=== PATIENT | female | born 1935 | race Caucasian/White ===

== ENCOUNTER 2021-05-07 09:00 | Outpatient (RCR) | payer MEDICARE, SELFPAY ==
[2021-05-01 14:10] VITALS: BP 155/65; PULSE 73; RESP 16; TEMP 36.8
--- NOTE | 2021-05-01 16:25 | HP.PCM_ITS ---
History of Present Illness Date of Service: 05/01/21 Chief Complaint: Nonhealing ulcers to bilateral legs History of Wound: This is an 86-year-old white female who presents to the wound healing center today with complaints of nonhealing ulcers on her bilateral lower extremities. These have been present for at least the last month. She has a past medical history of CKD, hypertension, and questionable diabetes. The patient states that she has a longstanding history of bilateral lower extremity edema. She does not currently utilize any compression other than Tubigrip's. She states that over the last couple weeks her redness to her left lower extremity has gotten somewhat worse and that she has had moderate amounts of serous drainage from the open wounds on her left lower extremity. She has been utilizing [id number] bacitracin and covering with gauze. She denies any systemic signs of infection at this time. Past medical, family, and social history reviewed and not pertinent to the current visit and all other systems reviewed and negative with exception of those listed above. [facility] Medical History (Updated 05/01/21 @ 16:34 by Francisco Javier Castellon NP, [employer]) CKD (chronic kidney disease) HTN (hypertension) PVD (peripheral vascular disease) Venous ulcer of left leg Venous ulcer of right leg ROS ROS Narrative Negative x10 systems with exception of those listed above Vital Signs Vital Signs Vital Signs: 05/01/21 14:10 Temperature 98.2 F Temperature Source Temporal Pulse Rate 73 Respiratory Rate 16 Blood Pressure 155/65 H Blood Pressure Mean 95 Blood Pressure Source Monitor Blood Pressure Position Sitting Blood Pressure Location Left Arm Physical Exam Const alert, oriented x3, no apparent distress, healthy appearing and well nourished General Appearance: cooperative Exam Limitations: no limitations HEENT normocephalic Head and Scalp: normal to inspection Mouth: oral and palatal mucosa normal Eyes General Eye: normal appearance of both eyes Resp normal respiratory effort, normal air movement and no use of accessory muscles Effort and Inspection: able to speak in complete sentences Auscultation: clear to auscultation bilaterally Cardio regular rate, regular rhythm, S1 normal heart sound, S2 normal heart sound, no murmurs and peripheral pulses 2+ throughout Palpation: normal PMI Rate: regular rate Heart Sounds: S1 normal and S2 normal GI normal to inspection, nondistended, normoactive bowel sounds, soft to palpation, non-tender and non-distended Palpation: soft Extremity normal to inspection and full ROM Extremity Narrative: 2+ pitting edema to bilateral lower extremities with chronic venous changes present and hemosiderin staining. Rubor present to bilateral lower extremities, slight warmth noted to the left lower extremity. Multiple clustered ulcers present with adherent slough, no purulent drainage, no streaking noted at this time. Dorsal pedis pulses 2+ General Extremity: normal exam except as noted Neuro oriented x3 and moves all extremities Sensorium / Orientation: awake, alert, oriented to person, oriented to place and oriented to time Psych mental status grossly normal, thought process normal and denies hallucinations Appearance: grossly normal Attitude: calm Activity / Motor Behavior: appropriate eye contact Speech: normal speech Thought Process: normal thought process Thought Content: normal thought content Attention / Concentration: attention grossly intact Insight: insight good Judgement: judgement good Debridement Note Debridement Note Wound debrided: Venous leg ulcer bilateral lower extremities Type of Debridement: Excisional debridement Anesthesia Used: 5% Lidocaine Gel Depth: Down to and including healthy tissue and in the subcutaneous layer Percentage of wound debrided: 100 Instrument Used: 5mm curette Tissue Removed: Slough and devitalized tissue Severity: Fat Layer Exposed Amount of bleeding with debridement: Mild Bleeding Controlled with: Pressure Patient tolerated procedure: Patient tolerated procedure well Post-Debridement Measurements and Additional Note: Post-Debridement Measurements/Treatment - Nurse 1 - General Ulcer Assessment Start: 05/01/21 14:10 Freq: Status: Active Protocol: JESUS Activity Type Activity Date Activity User E-Sign Co-Sign Detail Recorded Client Recorded Date Recorded By Document 05/01/21 14:10 ML [id number] 05/01/21 14:24 ML Document 05/01/21 14:32 DL [id number] 05/01/21 14:35 DL 05/01/21 05/01/21 14:10 14:32 - Today's Visit Information Type of service Initial Visit Arrival Mode Ambulatory Transfer Assistance None Patient Identification Verified (Name & Yes ) Patient Requires Transmission-Based No Precautions Safety Precautions NA Vital Signs Temperature (97.8 F-99.1 F) 98.2 F Temperature Source Temporal Pulse Rate (60-100) 73 Pulse Location Monitor Respiratory Rate (12-18) 16 Respiratory rate source Observation Blood Pressure (90/60-120/80) 155/65 H Blood Pressure Mean 95 Source Monitor Position Sitting Blood Pressure Location Left Arm History Since Last Visit- (Skip if this is Patient's initial visit) Have you changed medications since your No last visit? Any new allergies or adverse reactions No Had a fall/change in ADL's that may No increase risk of falls Signs or symptoms of abuse and/or No neglect since last visit Have you been in the hospital since your No last visit? Has dressing in place as prescribed No Has compression in place as prescribed N/A Has offloadiing in place as prescribed N/A Experienced any changes in pain level or No management Left Footwear Regular Shoe Right Footwear Regular Shoe Pain Scale: 0-10 Numeric Is Patient Pain Free? Yes Lower Extremity Assessment/ Foot Assessment/ Toe Nail Assessment Left -Posterior Tibial Palpable No -Posterior Tibial Doppler Multiphasic -Dorsalis Pedis Palpable No -Dorsalis Pedis Doppler Multiphasic -Extremity Color Hemosiderin -Hair Growth on Legs No -Hair Growth on Toes No -Temperature of Extremity Warm -Capillary Refill Greater than 3 Seconds -Dependent Rubor No -Blanched when Elevated No -Lipodermatosclerosis No -Other Deformity No -Prior Foot Ulcer No -Charcot Joint No -Prior Amputation No -Thick Yes -Discolored Yes -Deformed Yes -Improper Length & Hygeine Yes Right -Posterior Tibial Palpable No -Dorsalis Pedis Palpable No -Dorsalis Pedis Doppler Multiphasic -Extremity Color Hemosiderin -Hair Growth on Legs No -Hair Growth on Toes No -Temperature of Extremity Warm -Capillary Refill Greater than 3 Seconds -Dependent Rubor No -Blanched when Elevated No -Lipodermatosclerosis No -Other Deformity No -Prior Foot Ulcer No -Charcot Joint No -Prior Amputation No -Thick Yes -Discolored Yes -Deformed Yes -Improper Length & Hygeine Yes WC - Nurse 1 - General Ulcer Measurement Start: 05/01/21 14:10 Freq: Status: Active Protocol: Activity Type Activity Date Activity User E-Sign Co-Sign Detail Recorded Client Recorded Date Recorded By Document 05/01/21 14:10 ML [id number] 05/01/21 14:24 ML 05/01/21 14:10 Wound Center Nurse 1 #3 right quezada cluster -Current Size (cm) - Length 2.2 -Current Size (cm) - Width 4.4 -Current Size (cm) - Depth 0.1 -Total Square Cm 9.68 -Exudate Amt Small -Exudate Type Serosanguineous -Wound Margin Distinct, Outline Attached -Granulation Amt Medium (34-66%) -Granulation Quality Red -Slough/Fibrin Yes -Necrosis Amt Medium (34-66%) -Necrotic Tissue Type Adherent Slough -Texture (Meron-wound Skin Appearance) Assessed -Moisture (Meron-wound Skin Appearance) Assessed -Color (Meron-wound Skin Appearance) Assessed -Temperature (Meron-wound Skin No Abnormality Appearance) (Pt Warm) -Tenderness on Palpation (Meron-wound No Skin Appearance) -Ulcer Cleansing Soap and Water -Foul Odor after Cleansing No -Anesthetic Used 4% Lidocaine Solution #2 left medial lower leg cluster -Current Size (cm) - Length 0.9 -Current Size (cm) - Width 2.1 -Current Size (cm) - Depth 0.1 -Total Square Cm 1.89 -Exudate Amt Medium -Exudate Type Serosanguineous -Wound Margin Distinct, Outline Attached -Granulation Amt Medium (34-66%) -Granulation Quality Red -Slough/Fibrin Yes -Necrosis Amt Medium (34-66%) -Necrotic Tissue Type Adherent Slough -Texture (Meron-wound Skin Appearance) Assessed -Moisture (Meron-wound Skin Appearance) Assessed -Color (Meron-wound Skin Appearance) Assessed -Temperature (Meron-wound Skin Hot Appearance) -Tenderness on Palpation (Meron-wound No Skin Appearance) -Ulcer Cleansing Soap and Water -Foul Odor after Cleansing No -Anesthetic Used 4% Lidocaine Solution #1 left lateral lower leg -Current Size (cm) - Length 9 -Current Size (cm) - Width 4.3 -Current Size (cm) - Depth 0.1 -Total Square Cm 38.7 -Exudate Amt Medium -Exudate Type Serous -Wound Margin Distinct, Outline Attached -Granulation Amt Medium (34-66%) -Slough/Fibrin Yes -Necrosis Amt Medium (34-66%) -Necrotic Tissue Type Adherent Slough -Texture (Meron-wound Skin Appearance) Assessed -Moisture (Meron-wound Skin Appearance) Assessed -Color (Meron-wound Skin Appearance) Erythema -Temperature (Meron-wound Skin No Abnormality Appearance) (Pt Warm) -Tenderness on Palpation (Meron-wound No Skin Appearance) -Ulcer Cleansing Soap and Water -Foul Odor after Cleansing No -Anesthetic Used 4% Lidocaine Solution Right Calf (cm) 34.2 Right Ankle (cm) 28.5 Left Calf (cm) 42.5 Left Ankle (cm) 28 - Nurse 2 - General Ulcer CM Notes Start: 05/01/21 14:10 Freq: Status: Active Protocol: Activity Type Activity Date Activity User E-Sign Co-Sign Detail Recorded Client Recorded Date Recorded By Document 05/01/21 14:50 MW [id number] 05/01/21 15:01 MW 05/01/21 14:50 Wound Center Nurse 2 #3 right quezada cluster -Time 14:51 -Correct Patient Yes -Correct Side, Site, Position Yes -Correct Procedure Yes -Procedure Performed Yes -Type of Procedure Debridement -Clinical Debridement Subcutaneous -Tissue Removed Subcutaneous -Post Debridement (cm) - Length 3.0 -Post Debridement (cm) - Width 5.5 -Post Debridement (cm) - Depth 0.1 -Total Square (Post) (cm) 16.50 -Area of Debridement (cm) - Length 3.0 -Area of Debridement (cm) - Width 5.5 -Total Square (Area) (cm) 16.50 -Tunneling No -Undermining/Tunneling No -Circular Undermining No -Wound/Ulcer Outcome Not Healed -Ulcer Cleansing Rinsed/ Irrigated with Saline -Foul Odor after Cleansing No -Bioengineered Tissue No -Bleeding Controlled with Pressure -Offloading No -Treatment Response Procedure Tolerated Well -Debridement - Subq, 1st 20sq cm Yes -Debridement, SubQ, ea addt'l 20sq cm 3 or part thereof #2 left medial lower leg cluster -Time 14:52 -Correct Patient Yes -Correct Side, Site, Position Yes -Correct Procedure Yes -Procedure Performed Yes -Type of Procedure Debridement -Clinical Debridement Subcutaneous -Tissue Removed Subcutaneous -Post Debridement (cm) - Length 1.0 -Post Debridement (cm) - Width 0.5 -Post Debridement (cm) - Depth 0.1 -Total Square (Post) (cm) 0.50 -Area of Debridement (cm) - Length 1.0 -Area of Debridement (cm) - Width 0.5 -Total Square (Area) (cm) 0.50 -Tunneling No -Undermining/Tunneling No -Circular Undermining No -Wound/Ulcer Outcome Not Healed -Ulcer Cleansing Rinsed/ Irrigated with Saline -Foul Odor after Cleansing No -Bioengineered Tissue No -Bleeding Controlled with Pressure -Offloading No -Treatment Response Procedure Tolerated Well -Debridement - Subq, 1st 20sq cm No #1 left lateral lower leg -Time 14:53 -Correct Patient Yes -Correct Side, Site, Position Yes -Correct Procedure Yes -Procedure Performed Yes -Type of Procedure Debridement -Clinical Debridement Subcutaneous -Tissue Removed Subcutaneous -Post Debridement (cm) - Length 11.0 -Post Debridement (cm) - Width 4.5 -Post Debridement (cm) - Depth 0.1 -Total Square (Post) (cm) 49.50 -Area of Debridement (cm) - Length 11.0 -Area of Debridement (cm) - Width 4.5 -Total Square (Area) (cm) 49.50 -Tunneling No -Undermining/Tunneling No -Circular Undermining No -Wound/Ulcer Outcome Not Healed -Ulcer Cleansing Rinsed/ Irrigated with Saline -Foul Odor after Cleansing No -Bioengineered Tissue No -Bleeding Controlled with Pressure -Offloading No -Treatment Response Procedure Tolerated Well -Debridement - Subq, 1st 20sq cm No Pain Scale: 0-10 Numeric Is Patient Pain Free? Yes WC - Nurse 3 - General Ulcer D/C NN Start: 05/01/21 14:10 Freq: Status: Active Protocol: Activity Type Activity Date Activity User E-Sign Co-Sign Detail Recorded Client Recorded Date Recorded By Document 05/01/21 15:09 BERNIE [id number] 05/01/21 15:12 BERNIE 05/01/21 15:09 Wound Care Nurse 3 #3 right quezada cluster -Ulcer Cleansing Rinsed/ Irrigated with Saline -Foul Odor after Cleansing No -Negative Pressure Wound Therapy N/A -Primary Dressing Applied Silvercel -Primary Dressing Covered/Secured with Dry Gauze & Roll Gauze, Secured with Tape -Silvercel 2 #2 left medial lower leg cluster -Ulcer Cleansing Rinsed/ Irrigated with Saline -Foul Odor after Cleansing No -Negative Pressure Wound Therapy N/A -Primary Dressing Applied NonAdherent Contact Layer, Silvercel -Primary Dressing Covered/Secured with Dry Gauze & Roll Gauze, Secured with Tape -Silvercel 0 #1 left lateral lower leg -Ulcer Cleansing Rinsed/ Irrigated with Saline -Foul Odor after Cleansing No -Negative Pressure Wound Therapy N/A -Primary Dressing Applied Silvercel -Primary Dressing Covered/Secured with Dry Gauze & Roll Gauze, Secured with Tape -Silvercel 0 Right -Lotion applied to leg before No compression wrap -Tubular Bandage Double Layer -Size of Tubigrip Used Size F -Size F ($) 2 Left -Lotion applied to leg before No compression wrap -Tubular Bandage Double Layer -Size of Tubigrip Used Size F -Size F ($) 2 WC - Visit Discharge Discharge Condition Stable Ambulatory Status Ambulatory Transportation Private Auto Accompanied by Medication Reconcilliation completed & No provided to patient/care provider Clinical Summary of Care Provided Yes Charges/Coding Visit Charges Office Visits / Consults: 26315 OV L4 New Procedures Integumentary [id number]: [id number] Maria Luz subq tissue 20 sq cm/< Add On Codes: 87209 Maria Luz subq tissue add-on (x 3) Assessment/Plan Assessment/Plan (1) Venous ulcer of right leg: CODE(S): I83.019 - Varicose veins of right lower extremity with ulcer of unspecified site; L97.919 - Non-pressure chronic ulcer of unspecified part of right lower leg with unspecified severity (2) Venous ulcer of left leg: CODE(S): I83.029 - Varicose veins of left lower extremity with ulcer of unspecified site; L97.929 - Non-pressure chronic ulcer of unspecified part of left lower leg with unspecified severity (3) CKD (chronic kidney disease): CODE(S): N18.9 - Chronic kidney disease, unspecified (4) HTN (hypertension): CODE(S): I10 - Essential (primary) hypertension (5) PVD (peripheral vascular disease): CODE(S): I73.9 - Peripheral vascular disease, unspecified PLAN: Debridement performed today in clinic as annotated above. Silver cell cover with Adaptic and gauze applied. At home wound-care instructions: Daily application of moistened silver cell cover with Adaptic and gauze Change dressing once daily or more frequently as needed due to contamination. Wash wounds daily with antibacterial soap and water, rinse and dry thoroughly before each dressing change. Compression: Double layer Tubigrip's Off-loading: The patient was instructed to avoid pressure and friction on the affected areas. Reposition every 2 hours at minimum. Avoid prolonged standing and/or dangling of legs. When seated, feet should be elevated at chest level. Frequent ambulation is encouraged. Diet: Patient encouraged to increase protein intake while taking caution to avoid high carbohydrate and/or sugar intake. Patient is a non-smoker Labs/cultures/imaging: Cultures ordered and collected today. Routine baseline lab work held. Vascular studies held. Follow-up: Return to clinic in 2 week for re-evaluation. Return sooner or report to the emergency room should symptoms worsen, or new symptoms arise. This note was generated with [employer] dictation software. It may contain incorrect words, spelling, and punctuation that were not noted in checking the note before signing. I have spent 45 minutes today reviewing labs, records, and history. Time includes coordinating care, interpretation of tests, and counseling the patient/family. This also includes time I spent with the patient for exam, treatment plan, and education as well as documenting clinical information in the electronic health record.
--- NOTE | 2021-05-06 11:49 | WC ---
Wound culture results reviewed per Francisco Javier Castellon NP. Antibiotic sent to [facility] pharmacy in [place] per Francisco Javier. Spoke to son Michael. Stated he was concerned the wound had increased redness and dressing is sticking so he took his mom to the urgent care in [place] this morning. Urgent care requested she just be seen sooner at the wound center since she is already being treated here. Scheduled patient to see Jayla Patiño NP tomorrow at 9am. Son voiced understanding and will also pharmacy picking tech ATB today.
[2021-05-07 08:50] VITALS: BP 149/68; PULSE 71; RESP 16; TEMP 35.7
--- NOTE | 2021-05-07 10:17 | PCM.WC.HP ---
History of Present Illness Date of Service: 05/07/21 Chief Complaint: Nonhealing ulcers to bilateral legs History of Wound: This is an 86-year-old white female who presents to the wound healing center today with complaints of nonhealing ulcers on her bilateral lower extremities. These have been present for at least the last month. She has a past medical history of CKD, hypertension, and questionable diabetes. The patient states that she has a longstanding history of bilateral lower extremity edema. She does not currently utilize any compression other than Tubigrip's. She states that over the last couple weeks her redness to her left lower extremity has gotten somewhat worse and that she has had moderate amounts of serous drainage from the open wounds on her left lower extremity. She has been utilizing [id number] bacitracin and covering with gauze. She denies any systemic signs of infection at this time. Past medical, family, and social history reviewed and not pertinent to the current visit and all other systems reviewed and negative with exception of those listed above. FOR[facility]LY [facility] Medical History CKD (chronic kidney disease) HTN (hypertension) PVD (peripheral vascular disease) Venous ulcer of left leg Venous ulcer of right leg Home Medications ciprofloxacin HCl 250 mg tablet 250 mg PO BID #14 tab 05/06/21 [Rx Last Taken Unknown] ROS Integumentary Integumentary: Reports non-healing lesions Vital Signs Vital Signs Vital Signs: 05/07/21 08:50 Temperature 96.3 F L Temperature Source Temporal Pulse Rate 71 Respiratory Rate 16 Blood Pressure 149/68 H Blood Pressure Mean 95 Blood Pressure Source Monitor Blood Pressure Position Sitting Blood Pressure Location Left Arm Physical Exam Const oriented x3 General Appearance: cooperative Exam Limitations: no limitations HEENT normocephalic Head and Scalp: normal to inspection Face and Sinus: normal facial exam Nose: external nose normal General Ear: hearing grossly impaired External Ear: external ears normal Mouth: oral and palatal mucosa normal Eyes PERRL General Eye: normal appearance of both eyes Neck full ROM General: normal visual inspection Resp normal respiratory effort Effort and Inspection: able to speak in complete sentences Auscultation: clear to auscultation bilaterally Cardio regular rate and regular rhythm Palpation: normal PMI Rate: regular rate Rhythm: regular rhythm GI Auscultation: normoactive bowel sounds Palpation: soft and no hepatosplenomegaly external exam normal Back/Spine Cervical Spine: cervical ROM normal Thoracic Spine / Upper Back: normal to inspection Lumbar Spine / Lower Back: normal to inspection Extremity normal to inspection General Extremity: normal exam except as noted and edema left Skin no rashes or lesions noted General Skin Exam: other scabbed lesions bilat lower legs Neuro oriented x3 Psych Appearance: grossly normal Speech: normal speech Thought Content: normal thought content Judgement: judgement good Debridement Note Debridement Note Wound debrided: bilat lower legs No debridement was completed: No debridement was completed today Post-Debridement Measurements and Additional Note: Post-Debridement Measurements/Treatment - Nurse 1 - General Ulcer Assessment Start: 05/01/21 14:10 Freq: Status: Active Protocol: JESUS Activity Type Activity Date Activity User E-Sign Co-Sign Detail Recorded Client Recorded Date Recorded By Document 05/01/21 14:10 ML [id number] 05/01/21 14:24 ML Document 05/01/21 14:32 DL [id number] 05/01/21 14:35 DL Document 05/07/21 08:50 ML [id number] 05/07/21 09:00 ML 05/01/21 05/01/21 05/07/21 14:10 14:32 08:50 - Today's Visit Information Type of service Initial Visit Follow-up Visit (Physician/NUTRITION SERVICES MANAGER ) Arrival Mode Ambulatory Ambulatory Transfer Assistance None None Patient Identification Verified (Name & Yes Yes ) Patient Requires Transmission-Based No No Precautions Safety Precautions NA NA Vital Signs Temperature (97.8 F-99.1 F) 98.2 F 96.3 F L Temperature Source Temporal Temporal Pulse Rate (60-100) 73 71 Pulse Location Monitor Monitor Respiratory Rate (12-18) 16 16 Respiratory rate source Observation Observation Blood Pressure (90/60-120/80) 155/65 H 149/68 H Blood Pressure Mean 95 95 Source Monitor Monitor Position Sitting Sitting Blood Pressure Location Left Arm Left Arm History Since Last Visit- (Skip if this is Patient's initial visit) Have you changed medications since your No No last visit? Any new allergies or adverse reactions No No Had a fall/change in ADL's that may No No increase risk of falls Signs or symptoms of abuse and/or No No neglect since last visit Have you been in the hospital since your No No last visit? Has dressing in place as prescribed No Yes Has compression in place as prescribed N/A N/A Has offloadiing in place as prescribed N/A N/A Experienced any changes in pain level or No No management Left Footwear Regular Shoe Regular Shoe Right Footwear Regular Shoe Regular Shoe Pain Scale: 0-10 Numeric Is Patient Pain Free? Yes Yes Lower Extremity Assessment/ Foot Assessment/ Toe Nail Assessment Left -Posterior Tibial Palpable No -Posterior Tibial Doppler Multiphasic -Dorsalis Pedis Palpable No -Dorsalis Pedis Doppler Multiphasic -Extremity Color Hemosiderin -Hair Growth on Legs No -Hair Growth on Toes No -Temperature of Extremity Warm -Capillary Refill Greater than 3 Seconds -Dependent Rubor No -Blanched when Elevated No -Lipodermatosclerosis No -Other Deformity No -Prior Foot Ulcer No -Charcot Joint No -Prior Amputation No -Thick Yes -Discolored Yes -Deformed Yes -Improper Length & Hygeine Yes Right -Posterior Tibial Palpable No -Dorsalis Pedis Palpable No -Dorsalis Pedis Doppler Multiphasic -Extremity Color Hemosiderin -Hair Growth on Legs No -Hair Growth on Toes No -Temperature of Extremity Warm -Capillary Refill Greater than 3 Seconds -Dependent Rubor No -Blanched when Elevated No -Lipodermatosclerosis No -Other Deformity No -Prior Foot Ulcer No -Charcot Joint No -Prior Amputation No -Thick Yes -Discolored Yes -Deformed Yes -Improper Length & Hygeine Yes WC - Nurse 1 - General Ulcer Measurement Start: 05/01/21 14:10 Freq: Status: Active Protocol: Activity Type Activity Date Activity User E-Sign Co-Sign Detail Recorded Client Recorded Date Recorded By Document 05/01/21 14:10 ML [id number] 05/01/21 14:24 ML Document 05/07/21 08:50 ML [id number] 05/07/21 09:00 ML 05/01/21 05/07/21 14:10 08:50 Wound Center Nurse 1 #3 right [place] cluster -Current Size (cm) - Length 2.2 2.8 -Current Size (cm) - Width 4.4 3.6 -Current Size (cm) - Depth 0.1 0.1 -Total Square Cm 9.68 10.08 -Exudate Amt Small Medium -Exudate Type Serosanguineous Serosanguineous -Wound Margin Distinct, Distinct, Outline Outline Attached Attached -Granulation Amt Medium (34-66%) Medium (34-66%) -Granulation Quality Red -Slough/Fibrin Yes Yes -Necrosis Amt Medium (34-66%) Medium (34-66%) -Necrotic Tissue Type Adherent Slough Adherent Slough -Texture (Meron-wound Skin Appearance) Assessed Assessed -Moisture (Meron-wound Skin Appearance) Assessed Assessed -Color (Meron-wound Skin Appearance) Assessed Assessed -Temperature (Meron-wound Skin No Abnormality No Abnormality Appearance) (Pt Warm) (Pt Warm) -Tenderness on Palpation (Meron-wound No No Skin Appearance) -Ulcer Cleansing Soap and Water Soap and Water -Foul Odor after Cleansing No No -Anesthetic Used 4% Lidocaine 4% Lidocaine Solution Solution #2 left medial lower leg cluster -Current Size (cm) - Length 0.9 1 -Current Size (cm) - Width 2.1 1.9 -Current Size (cm) - Depth 0.1 0.1 -Total Square Cm 1.89 1.9 -Exudate Amt Medium Medium -Exudate Type Serosanguineous Serosanguineous -Wound Margin Distinct, Distinct, Outline Outline Attached Attached -Granulation Amt Medium (34-66%) Medium (34-66%) -Granulation Quality Red -Slough/Fibrin Yes Yes -Necrosis Amt Medium (34-66%) Medium (34-66%) -Necrotic Tissue Type Adherent Slough Adherent Slough -Texture (Meron-wound Skin Appearance) Assessed Assessed -Moisture (Meron-wound Skin Appearance) Assessed Assessed -Color (Meron-wound Skin Appearance) Assessed Assessed -Temperature (Meron-wound Skin Hot No Abnormality Appearance) (Pt Warm) -Tenderness on Palpation (Meron-wound No Skin Appearance) -Ulcer Cleansing Soap and Water Soap and Water -Foul Odor after Cleansing No No -Anesthetic Used 4% Lidocaine 4% Lidocaine Solution Solution #1 left lateral lower leg -Current Size (cm) - Length 9 8.9 -Current Size (cm) - Width 4.3 6.3 -Current Size (cm) - Depth 0.1 0.1 -Total Square Cm 38.7 56.07 -Exudate Amt Medium Medium -Exudate Type Serous Serosanguineous -Wound Margin Distinct, Distinct, Outline Outline Attached Attached -Granulation Amt Medium (34-66%) Medium (34-66%) -Slough/Fibrin Yes Yes -Necrosis Amt Medium (34-66%) Medium (34-66%) -Necrotic Tissue Type Adherent Slough Adherent Slough -Texture (Meron-wound Skin Appearance) Assessed Assessed -Moisture (Meron-wound Skin Appearance) Assessed Assessed -Color (Meron-wound Skin Appearance) Erythema Assessed -Temperature (Meron-wound Skin No Abnormality No Abnormality Appearance) (Pt Warm) (Pt Warm) -Tenderness on Palpation (Meron-wound No No Skin Appearance) -Ulcer Cleansing Soap and Water Soap and Water -Foul Odor after Cleansing No Yes -Anesthetic Used 4% Lidocaine 4% Lidocaine Solution Solution Right Calf (cm) 34.2 35.7 Right Ankle (cm) 28.5 25.1 Left Calf (cm) 42.5 41.3 Left Ankle (cm) 28 26.8 WC - Nurse 2 - General Ulcer CM Notes Start: 05/01/21 14:10 Freq: Status: Active Protocol: Activity Type Activity Date Activity User E-Sign Co-Sign Detail Recorded Client Recorded Date Recorded By Document 05/01/21 14:50 MW [id number] 05/01/21 15:01 MW Document 05/07/21 09:20 MW [id number] 05/07/21 09:25 MW 05/01/21 05/07/21 14:50 09:20 Wound Center Nurse 2 #3 right quezada cluster -Time 14:51 09:23 -Correct Patient Yes Yes -Correct Side, Site, Position Yes Yes -Correct Procedure Yes Yes -Procedure Performed Yes No -Type of Procedure Debridement -Clinical Debridement Subcutaneous -Tissue Removed Subcutaneous -Post Debridement (cm) - Length 3.0 -Post Debridement (cm) - Width 5.5 -Post Debridement (cm) - Depth 0.1 -Total Square (Post) (cm) 16.50 -Area of Debridement (cm) - Length 3.0 -Area of Debridement (cm) - Width 5.5 -Total Square (Area) (cm) 16.50 -Tunneling No No -Undermining/Tunneling No No -Circular Undermining No No -Wound/Ulcer Outcome Not Healed Healed- Epithelialized -Ulcer Cleansing Rinsed/ Irrigated with Saline -Foul Odor after Cleansing No -Bioengineered Tissue No -Bleeding Controlled with Pressure -Offloading No -Treatment Response Procedure Tolerated Well -Debridement - Subq, 1st 20sq cm Yes -Debridement, SubQ, ea addt'l 20sq cm 3 or part thereof #2 left medial lower leg cluster -Time 14:52 09:24 -Correct Patient Yes Yes -Correct Side, Site, Position Yes Yes -Correct Procedure Yes Yes -Procedure Performed Yes No -Type of Procedure Debridement -Clinical Debridement Subcutaneous -Tissue Removed Subcutaneous -Post Debridement (cm) - Length 1.0 -Post Debridement (cm) - Width 0.5 -Post Debridement (cm) - Depth 0.1 -Total Square (Post) (cm) 0.50 -Area of Debridement (cm) - Length 1.0 -Area of Debridement (cm) - Width 0.5 -Total Square (Area) (cm) 0.50 -Tunneling No -Undermining/Tunneling No -Circular Undermining No -Wound/Ulcer Outcome Not Healed Healed- Epithelialized -Ulcer Cleansing Rinsed/ Irrigated with Saline -Foul Odor after Cleansing No -Bioengineered Tissue No -Bleeding Controlled with Pressure -Offloading No -Treatment Response Procedure Tolerated Well -Debridement - Subq, 1st 20sq cm No #1 left lateral lower leg -Time 14:53 09:24 -Correct Patient Yes Yes -Correct Side, Site, Position Yes Yes -Correct Procedure Yes Yes -Procedure Performed Yes No -Type of Procedure Debridement -Clinical Debridement Subcutaneous -Tissue Removed Subcutaneous -Post Debridement (cm) - Length 11.0 -Post Debridement (cm) - Width 4.5 -Post Debridement (cm) - Depth 0.1 -Total Square (Post) (cm) 49.50 -Area of Debridement (cm) - Length 11.0 -Area of Debridement (cm) - Width 4.5 -Total Square (Area) (cm) 49.50 -Tunneling No No -Undermining/Tunneling No No -Circular Undermining No No -Wound/Ulcer Outcome Not Healed Healed- Epithelialized -Ulcer Cleansing Rinsed/ Irrigated with Saline -Foul Odor after Cleansing No -Bioengineered Tissue No -Bleeding Controlled with Pressure -Offloading No -Treatment Response Procedure Tolerated Well -Debridement - Subq, 1st 20sq cm No Pain Scale: 0-10 Numeric Is Patient Pain Free? Yes Yes WC - Nurse 3 - General Ulcer D/C NN Start: 05/01/21 14:10 Freq: Status: Active Protocol: Activity Type Activity Date Activity User E-Sign Co-Sign Detail Recorded Client Recorded Date Recorded By Document 05/01/21 15:09 AK [id number] 05/01/21 15:12 AK Document 05/07/21 09:26 MW [id number] 05/07/21 09:28 MW 05/01/21 05/07/21 15:09 09:26 Wound Care Nurse 3 #3 right quezada cluster -Ulcer Cleansing Rinsed/ Irrigated with Saline -Foul Odor after Cleansing No -Negative Pressure Wound Therapy N/A -Primary Dressing Applied Silvercel -Primary Dressing Covered/Secured with Dry Gauze & Dry Gauze & Roll Gauze, Roll Gauze, Secured with Secured with Tape Tape -Silvercel 2 #2 left medial lower leg cluster -Ulcer Cleansing Rinsed/ Irrigated with Saline -Foul Odor after Cleansing No -Negative Pressure Wound Therapy N/A -Primary Dressing Applied NonAdherent Contact Layer, Silvercel -Primary Dressing Covered/Secured with Dry Gauze & Dry Gauze & Roll Gauze, Roll Gauze, Secured with Secured with Tape Tape -Silvercel 0 #1 left lateral lower leg -Ulcer Cleansing Rinsed/ Irrigated with Saline -Foul Odor after Cleansing No -Negative Pressure Wound Therapy N/A -Primary Dressing Applied Silvercel -Primary Dressing Covered/Secured with Dry Gauze & Dry Gauze & Roll Gauze, Roll Gauze, Secured with Secured with Tape Tape -Silvercel 0 Right -Lotion applied to leg before No No compression wrap -Tubular Bandage Double Layer -Size of Tubigrip Used Size F -Size F ($) 2 -Stockings Yes Left -Lotion applied to leg before No No compression wrap -Tubular Bandage Double Layer -Size of Tubigrip Used Size F -Size F ($) 2 -Stockings Yes Treatment Response Procedure Tolerated Well Pain Scale: 0-10 Numeric Is Patient Pain Free? Yes Teaching: Wound Center Discharge Instructions -Person Taught Patient -Teaching Method Discussion -Response to teaching Verbalize understanding WC - Visit Discharge Discharge Condition Stable Stable Ambulatory Status Ambulatory Ambulatory Transportation Private Auto Private Auto Accompanied by son Medication Reconcilliation completed & No No provided to patient/care provider Clinical Summary of Care Provided Yes Yes Lab / Micro Data Micro: Microbiology 05/01/21 15:00 Wound Abcess - Other Gram Stain - Final 05/01/21 15:00 Wound Abcess - Other Wound Culture - Final Enterobacter cloacae complex 05/01/21 15:00 Wound Abcess - Other Anaerobic Culture - Final No anaerobic bacteria isolated. Assessment/Plan Assessment/Plan (1) Venous ulcer of right leg: CODE(S): I83.019 - Varicose veins of right lower extremity with ulcer of unspecified site; L97.919 - Non-pressure chronic ulcer of unspecified part of right lower leg with unspecified severity PLAN: continue the compression (2) Venous ulcer of left leg: CODE(S): I83.029 - Varicose veins of left lower extremity with ulcer of unspecified site; L97.929 - Non-pressure chronic ulcer of unspecified part of left lower leg with unspecified severity PLAN: all scabbed cover with ABD for protection and ddischarged form the wound center follow up as needed (3) CKD (chronic kidney disease): CODE(S): N18.9 - Chronic kidney disease, unspecified QUALIFIERS: Chronic kidney disease stage: unspecified stage Qualified Code(s): N18.9 - Chronic kidney disease, unspecified (4) HTN (hypertension): CODE(S): I10 - Essential (primary) hypertension QUALIFIERS: Hypertension type: primary hypertension Qualified Code(s): I10 - Essential (primary) hypertension (5) PVD (peripheral vascular disease): CODE(S): I73.9 - Peripheral vascular disease, unspecified
== END 2021-05-13 23:59 ==
LOC: WC 09:00
PROVIDERS: PCP Nurse Practitioner Family; Visit Provider Nurse Practitioner Family
DX: I83.018 Varicose veins of right lower extremity with ulcer other part of lower leg (principal); L97.812 Non-pressure chronic ulcer of other part of right lower leg with fat layer exposed; I83.029 Varicose veins of left lower extremity with ulcer of unspecified site; L97.929 Non-pressure chronic ulcer of unspecified part of left lower leg with unspecified severity; I12.9 Hypertensive chronic kidney disease with stage 1 through stage 4 chronic kidney disease, or unspecified chronic kidney disease; N18.9 Chronic kidney disease, unspecified; R60.0 Localized edema; I73.9 Peripheral vascular disease, unspecified
CPT/HCPCS: 11042; 11045; 87070; 87075; 87077; 87186; 87205; 99203; 99212; G0463